=== PATIENT | male | born 1970 | race Caucasian/White ===

== ENCOUNTER 2018-01-05 05:13 | Emergency (ER) | payer SELFPAY ==
[~2018-01-05] VITALS: Ht 172.7 cm; Wt 81.6 kg
[2018-01-05] MEDS ORDERED: MORPHINE SULFATE 10 MG/ML VIAL. ONE (05:41)
[2018-01-05] MEDS ORDERED: ONDANSETRON PF 4 MG/2 ML VIAL. ONE (05:42)
[2018-01-05] MEDS ORDERED: MORPHINE SULFATE 4 MG/ML VIAL. IV ONE (06:00)
[2018-01-05] MEDS ORDERED: ONDANSETRON PF 4 MG/2 ML VIAL. IV ONE (06:00)
[2018-01-05] MEDS ORDERED: HYDR-971 PO (06:21)
--- NOTE | 2018-01-05 06:21 | PHYS DOC ---
Past Medical History Past Medical History: Hypertension Past Surgical History: No Surgical History Alcohol Use: None Drug Use: None Joint Reduction Joint Reduction : Joint Reduction Site: shoulder (R) Conscious Sedation: Yes Pre-Procedure NV Exam: Yes Post-Procedure NV Exam: Yes Post Joint Reduction Film: joint reduced Additional Procedures Progress Procedural Sedation: Pre-assessment performed. See preceding complete history and physical for details. Time out performed. See sedation documentation for details. Medication(s): Propofol Complications: No hypoxic or apneic events Recovered without incident. Greater than 15 minutes of face to face time included in sedation and recovery. Adult General Chief Complaint Chief Complaint: SHOULDER INJURY HPI HPI Patient is a 47 year old male who presents to the ER for evaluation of right shoulder dislocation. Patient reports history of recurrent shoulder dislocation for many years. States that approximately 5 years ago he is having repeated dislocations with minimal mechanism. States that 2 days ago he dislocated his right shoulder while sleeping but was able to get back in. Woke up this morning and as right shoulder is also dislocated is unable to reduce it. Denies any distal numbness or tingling. Pain is local shoulder, 7-8 out of 10, sharp. 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 Patient has not followed up with ortho. . Review of Systems Review of Systems Constitutional: Denies fever or chills [] Eyes: Denies change in visual acuity, redness, or eye pain [] HENT: Denies nasal congestion or sore throat [] Respiratory: Denies cough or shortness of breath [] Cardiovascular: No additional information not addressed in HPI [] GI: Denies abdominal pain, nausea, vomiting, bloody stools or diarrhea [] : Denies dysuria or hematuria [] Musculoskeletal: Denies back pain or joint pain [] Integument: Denies rash or skin lesions [] Neurologic: Denies headache, focal weakness or sensory changes [] Endocrine: Denies polyuria or polydipsia [] All other systems were reviewed and found to be within normal limits, except as documented in this note. Current Medications Current Medications Current Medications Medications (Trade) Dose Ordered Sig/Riky Start Time Stop Time Status Last Admin Dose Admin Diazepam (Valium) 10 mg 1X ONCE 01/05/18 06:30 01/05/18 06:31 DC 01/05/18 06:17 10 MG Lidocaine HCl (Lidocaine 1% 20ml Vial) 20 ml 1X ONCE 01/05/18 06:30 01/05/18 06:31 Cancel Lidocaine HCl (Xylocaine-Mpf 1% 5ml Vial) 10 ml 1X ONCE 01/05/18 07:00 01/05/18 07:01 DC 01/05/18 06:31 10 ML Morphine Sulfate (Morphine Sulfate) 10 mg STK-MED ONCE 01/05/18 05:41 01/05/18 05:42 DC Ondansetron HCl (Zofran) 4 mg STK-MED ONCE 01/05/18 05:42 01/05/18 05:43 DC Propofol (Diprivan) 200 mg 1X ONCE 01/05/18 08:15 01/05/18 08:16 DC 01/05/18 08:12 200 MG Sodium Chloride 1,000 ml @ 1,000 mls/hr 1X ONCE 01/05/18 08:15 01/05/18 09:14 01/05/18 08:08 1,000 MLS/HR Allergies Allergies Allergies Coded Allergies Type Severity Reaction Last Updated Verified No Known Drug Allergies 12/13/14 No Physical Exam Physical Exam Constitutional: Well developed, well nourished, no acute distress, non-toxic appearance. [] HENT: Normocephalic, atraumatic, Eyes: PERRLA, EOMI, conjunctiva normal, no discharge. [] Neck: Normal range of motion, no tenderness, supple, no stridor. [] Cardiovascular:Heart rate regular rhythm, no murmur [] Lungs & Thorax: Bilateral breath sounds clear to auscultation [] Skin: Warm, dry, no erythema, no rash. [] Back: No tenderness, no CVA tenderness. [] Extremities: Obvious deformity to right shoulder with squared off anatomy. Normal range of motion of right wrist and right hand. Radial pulse +2 out of 4. Distal sensation intact. Neurologic: Alert and oriented X 3,no focal deficits noted. [] Psychologic: Affect normal, judgement normal, mood normal. [] Current Patient Data Vital Signs Vital Signs Date Time Temp Pulse Resp B/P (MAP) Pulse Ox O2 Delivery O2 Flow Rate FiO2 01/05/18 08:05 72 14 144/99 (114) 97 Room Air 01/05/18 05:20 97.7 97.7 EKG EKG [] Radiology/Procedures Radiology/Procedures XR : R shoulder anterior dislocation XR R shoulder: S/p reduction. no acute fracture [] Course & Med Decision Making Course & Med Decision Making Pertinent Labs and Imaging studies reviewed. (See chart for details) []0802: Given history of recurrent dislocation and low mechanism resulting in dislocation attempted injection of lidocaine joint and oral Valium prior to reduction. Patient to anxious and unable to tolerate the procedure. A full conscious sedation was done. Patient was given propofol and had successful reduction of his right shoulder. Patient was placed in a shoulder immobilizer. Patient was advised to keep the shoulder immobilizer on until seen by Ortho. ER return precautions given. Patient verbalized understanding. All questions answered. Dragon Disclaimer Dragon Disclaimer This electronic medical record was generated, in whole or in part, using a voice recognition dictation system. Departure Departure Disposition: 01 HOME, SELF-CARE Condition: IMPROVED Referrals: NO PCP (PCP) THI MARTINES MD Patient Instructions: Shoulder Dislocation, [id number] Additional Instructions: Thank you for coming to [facility] Please repeat the attached handouts. Please follow-up with your primary care physician. Return to the ER if your symptoms worsen or you have any other concerns. Please take ibuprofen 800 mg 3 times a day with food for pain. Please take the prescribed medication for uncontrolled pain. Please keep the shoulder immobilizer on until your seen by an orthopedist. Scripts Hydrocodone/Apap 5-325 (NORCO 5-325 TABLET) 1 Each Tablet 1-2 EACH PO PRN Q6HRS PRN for PAIN MDD 6, #6 as needed for pain Prov: ARIEL PARSON DO 01/05/18 ARIEL PARSON DO Jan 05, 2018 06:21
--- NOTE | 2018-01-05 06:29 | RAD ---
Right shoulder 2 views: Reason for examination: Dislocation. Comparison is made to previous studies dated 02/23/2017 and 02/22/2007. The right humeral head appears to be dislocated anterior and inferior to the glenoid. An acute site of fracture is not seen. There is a small corticated ossific density at the distal end of the clavicle which could represent a chronic avulsion fracture. IMPRESSION: Anterior dislocation of the right humeral head from the glenoid. Electronically signed by: Nadira Dunbar MD (01/05/2018 6:25 AM) [facility]
[2018-01-05] MEDS ORDERED: LIDOCAINE 1% Multi-Dose 20 ML VIAL. INJ ONE (06:30)
[2018-01-05] MEDS ORDERED: diazePAM 5 MG TABLET PO ONE (06:30)
[2018-01-05] MEDS ORDERED: LIDOCAINE 1% PF 5 ML VIAL. INJ ONE (07:00)
[2018-01-05] MEDS ORDERED: PROPOFOL 20 ML IV ONE (07:09)
[2018-01-05 08:05] VITALS: BP 144/99
--- NOTE | 2018-01-05 08:14 | RAD ---
SHOULDER 2+V RIGHT Clinical Indication: POST REDUCTION, RIGHT SHOULDER Comparison: Right shoulder, 2 views, same day, 0544 hours Findings: Successful reduction of anterior subcoracoid glenohumeral dislocation. No acute fracture is identified. There is acromioclavicular arthropathy. Low lung volumes crowd pulmonary vasculature. IMPRESSION: Successful reduction of right shoulder dislocation. Electronically signed by: Sreekanth Luu MD (01/05/2018 8:11 AM) [facility]
[2018-01-05] MEDS ORDERED: IV NORMAL SALINE 1000ML BAG 1,000 ML IV ONE (08:15)
[2018-01-05] MEDS ORDERED: PROPOFOL 10 MG/ML (20ML) VIAL. IV ONE (08:15)
== END 2018-01-05 08:35 | disposition home or self-care (01) ==
LOC: ER 05:13
DX: S43.084A Other dislocation of right shoulder joint, initial encounter (principal); I10 Essential (primary) hypertension; X58.XXXA Exposure to other specified factors, initial encounter; Y93.89 Activity, other specified; Y92.89 Other specified places as the place of occurrence of the external cause; Y99.8 Other external cause status
CPT/HCPCS: 23650; 73030; 96374; 96375; 99285; J2405; J2704; J7030; 99152; J2270

== ENCOUNTER 2018-01-18 00:59 | Emergency (ER) | payer SELFPAY ==
[~2018-01-18] VITALS: Ht 172.7 cm; Wt 86.2 kg
[~2018-01-18 00:59] MED LIST: HYDR-971 PO
--- NOTE | 2018-01-18 01:22 | PHYS DOC ---
Past Medical History Past Medical History: Hypertension Past Surgical History: No Surgical History Alcohol Use: None Drug Use: None Adult General Chief Complaint Chief Complaint: SHOULDER INJURY HPI HPI Patient is a 47-year-old male who presents to the emergency department with recurrent right shoulder dislocation. He states he has had at least 25 shoulder dislocations in the past several years. He states he was sleeping, and was awakened by pain in his right shoulder, and is holding his arm slightly abducted , and externally rotated. He was seen in this emergency department for shoulder dislocation about 2 weeks ago. He denies any numbness or weakness distally or any other direct traumatic injury recently. He has not followed up with orthopedics. Attempted movement of the right shoulder seems to worsen the patient's pain. There are no other alleviating or exacerbating factors to his symptoms. Review of Systems Review of Systems Constitutional: Denies fever or chills [] Respiratory: Denies cough or shortness of breath [] : Denies dysuria or hematuria [] Musculoskeletal: Denies back pain or joint pain [] Integument: Denies rash or skin lesions [] Neurologic: Denies headache, focal weakness or sensory changes [] Current Medications Current Medications Current Medications Medications (Trade) Dose Ordered Sig/Riky Start Time Stop Time Status Last Admin Dose Admin Fentanyl Citrate (Fentanyl 2ml Vial) 100 mcg 1X ONCE 01/18/18 02:30 01/18/18 02:31 DC 01/18/18 01:38 100 MCG Propofol (Diprivan) 200 mg 1X ONCE 01/18/18 02:30 01/18/18 03:06 DC 01/18/18 02:30 200 MG Allergies Allergies Allergies Coded Allergies Type Severity Reaction Last Updated Verified No Known Drug Allergies 12/13/14 No Physical Exam Physical Exam PHYSICAL EXAM: CONSTITUTIONAL: Well developed, well nourished HEAD: normocephalic, atraumatic EENT: PERRL, EOMI. Conjunctivae normal color, sclerae non-icteric; moist mucous membranes. NECK: Supple, non-tender; no meningismus. LUNGS: Lungs CTA, breathing even and unlabored. Normal air movement. HEART: Regular rate and rhythm, no murmur CHEST: No deformity; non-tender ABDOMEN: The abdomen is soft, and non-tender, no masses or bruits. EXTREM: The right shoulder is held in approximately 75 of abduction, and external rotation, there is some flatness felt to the anterior glenoid area, although due to the patient's positioning this is uncertain. There is normal range of motion in the hand and wrist. Distal sensation and radial pulse are normal. Deltoid sensation is intact but diminished. Extremities are unremarkable , with Normal ROM; no deformity, no calf tenderness. Normal pulses palpable in all extremities. There is no pedal edema. SKIN: No rash; no diaphoresis NEURO: Alert; normal speech and cognition; CN's grossly intact; strength grossly intact without focal deficit. BACK: No CVA TTP. Current Patient Data Vital Signs Vital Signs Date Time Temp Pulse Resp B/P (MAP) Pulse Ox O2 Delivery O2 Flow Rate FiO2 01/18/18 02:33 62 14 160/91 67 01/18/18 01:38 98 Room Air 01/18/18 00:59 98.2 98.2 EKG EKG [] Radiology/Procedures Radiology/Procedures [ER physician preliminary shoulder x-ray interpretation: Acute anterior/ inferior dislocation Repeat postreduction x-ray shows satisfactory reduction. There are no acute fractures noted.] Course & Med Decision Making Course & Med Decision Making Pertinent Labs and Imaging studies reviewed. (See chart for details) [3:30 AM: The patient's condition remained stable. He is ambulatory, and at his baseline. He is feeling much better. He is in a shoulder immobilizer. PMS intact and deltoid sensation intact postreduction. Discussed importance of close follow-up with ] orthopedics, and return precautions. SHOULDER DISLOCATION REDUCTION PROCEDURE NOTE: The patient was placed on a environmental monitoring technician, and CO2 monitor and oxygen monitoring was used. Informed consent was obtained. The patient was given a total of 100 mg of propofol, and divided doses, until moderate sedation was obtained. The right anterior shoulder dislocation was easily reduced, with adduction, slight external rotation and mild traction. The patient tolerated procedure well. EMS intact post procedure. Patient recovered from sedation uneventfully. Dragon Disclaimer Dragon Disclaimer This electronic medical record was generated, in whole or in part, using a voice recognition dictation system. Departure Departure Impression: Primary Impression: Anterior shoulder dislocation Disposition: HOME, SELF-CARE Condition: STABLE Referrals: NO PCP (PCP) Patient Instructions: Shoulder Dislocation POLA WEIR MD Jan 18, 2018 01:22
[2018-01-18] MEDS ORDERED: fentaNYL PF VIAL 100 MCG/2 ML VIAL IV ONE (02:30)
[2018-01-18] MEDS ORDERED: PROPOFOL 10 MG/ML (20ML) VIAL. IV ONE (02:30)
[2018-01-18] MEDS ORDERED: PROPOFOL 20 ML IV ONE (02:32)
[2018-01-18 03:52] VITALS: BP 163/97
--- NOTE | 2018-01-18 09:31 | RAD ---
Right shoulder, 2 views, 01/18/2018, 1:40 AM: HISTORY: Trauma, shoulder injury There is anterior dislocation of the humeral head relative to the glenoid fossa of the scapula. No acute fracture is seen. There is mild degenerative change at the AC joint with a small chronic appearing periarticular ossification at that level. IMPRESSION: Anterior right shoulder dislocation. Electronically signed by: Darius Queen MD (01/18/2018 9:28 AM) [facility]
--- NOTE | 2018-01-18 09:33 | RAD ---
Portable right shoulder, 2 views, 01/18/2018, 3:04 AM: HISTORY: Postreduction evaluation Comparison is made to the study of earlier the same day. The right shoulder dislocation has been reduced. No acute fracture is seen. Degenerative changes are again noted at the AC joint. IMPRESSION: Satisfactory reduction of the right shoulder dislocation. Electronically signed by: Darius Queen MD (01/18/2018 9:30 AM) [facility]
== END 2018-01-18 04:05 | disposition home or self-care (01) ==
LOC: ER 00:59
DX: S43.084A Other dislocation of right shoulder joint, initial encounter (principal); I10 Essential (primary) hypertension; X58.XXXA Exposure to other specified factors, initial encounter; Y93.89 Activity, other specified; Y92.89 Other specified places as the place of occurrence of the external cause; Y99.8 Other external cause status
CPT/HCPCS: 23650; 73030; 96374; 99285; J2704; J3010

== ENCOUNTER 2018-01-22 10:48 | Emergency (ER) | payer SELFPAY ==
[~2018-01-22] VITALS: Ht 172.7 cm; Wt 83.9 kg
[2018-01-22] MEDS ORDERED: MORPHINE SULFATE 10 MG/ML VIAL. IV ONE (11:15)
--- NOTE | 2018-01-22 11:16 | PHYS DOC ---
Past Medical History Past Medical History: Hypertension Past Surgical History: No Surgical History Alcohol Use: None Drug Use: None Adult General HPI HPI Patient is a 47 year old male with history of hypertension who presents today with right shoulder dislocation. Patient states he woke up this morning and his shoulder was dislocated. He states he has had over 25 shoulder dislocations. He states he never follows up with the orthopedic doctor. He is complaining of 10 out of 10 right shoulder pain. He states his pain is worse on movement. He is favoring the right upper extremity. Review of Systems Review of Systems Constitutional: Denies fever or chills [] Musculoskeletal: Reports right shoulder dislocation Integument: Denies rash or skin lesions [] Neurologic: Denies headache, focal weakness or sensory changes [] All other systems were reviewed and found to be within normal limits, except as documented in this note. Current Medications Current Medications Current Medications Medications (Trade) Dose Ordered Sig/Riky Start Time Stop Time Status Last Admin Dose Admin Fentanyl Citrate (Fentanyl 2ml Vial) 50 mcg 1X ONCE 01/22/18 12:00 01/22/18 12:01 DC 01/22/18 12:13 50 MCG Midazolam HCl (Versed) 5 mg STK-MED ONCE 01/22/18 12:30 01/22/18 12:31 DC Morphine Sulfate (Morphine Sulfate) 5 mg 1X ONCE 01/22/18 11:15 01/22/18 11:16 DC Propofol (Diprivan) 200 mg 1X ONCE 01/22/18 12:00 01/22/18 12:01 DC 01/22/18 12:15 200 MG Allergies Allergies Allergies Coded Allergies Type Severity Reaction Last Updated Verified No Known Drug Allergies 12/13/14 No Physical Exam Physical Exam Constitutional: Well developed, well nourished, no acute distress, non-toxic appearance. [] Skin: Warm, dry, no erythema, no rash. [] Back: No tenderness, no CVA tenderness. [] Extremities: Right shoulder appears obviously deformed/internally rotated. Very limited range of motion to the right shoulder due to pain. Full range of motion to the right hand and fingers. Adequate radial, medial, ulnar sensation to the right upper extremity. +2 right radial pulse. Cap refill less than 2 seconds the right fingers. Neurologic: Alert and oriented X 3, normal motor function, normal sensory function, no focal deficits noted. [] Psychologic: Affect normal, judgement normal, mood normal. [] Current Patient Data Vital Signs Vital Signs Date Time Temp Pulse Resp B/P (MAP) Pulse Ox O2 Delivery O2 Flow Rate FiO2 01/22/18 12:56 69 16 142/86 6.0 01/22/18 12:19 96 Nasal Cannula 01/22/18 10:48 97.4 97.4 EKG EKG [] Radiology/Procedures Radiology/Procedures []PROCEDURE: SHOULDER 2+V RIGHT SHOULDER 2+V RIGHT History: Dislocation of shoulder while sleeping Comparison: 01/18/2018 Findings: 2 views right shoulder are submitted. There is right anterior shoulder dislocation. Small ossific body near the distal right clavicle is unchanged. No acute fracture is identified by radiographs. Impression: 1. There is right anterior shoulder dislocation. Electronically signed by: Lexis Cantu MD (01/22/2018 12:04 PM) [id number] DICTATED and SIGNED BY: LEXIS CANTU MD DATE: 01/22/18 1202 Course & Med Decision Making Course & Med Decision Making Pertinent Labs and Imaging studies reviewed. (See chart for details) This is a 47-year-old male patient presented to the ED today with right shoulder his location, noted this morning when patient woke up. Right shoulder x-rays interpreted by radiologist were noted for right anterior shoulder dislocation. Dr. Ng tried to reduce the shoulder with no success. Dr. Dominguez was consulted who stated he will take patient to OR. Consulted with Dr. Sands for admission Dr. Dominguez came to the Ed and evaluated patient. He states patient will go to surgery then home. Dragon Disclaimer Dragon Disclaimer This electronic medical record was generated, in whole or in part, using a voice recognition dictation system. Departure Departure Impression: Primary Impression: Shoulder dislocation Disposition: 09 ADMITTED INPATIENT Condition: STABLE Referrals: NO PCP (PCP) Problem Qualifiers Primary Impression: Shoulder dislocation Encounter type: sequela Laterality: right Qualified Codes: S43.004S - Unspecified dislocation of right shoulder joint, sequela [employer] Jan 22, 2018 11:16
[2018-01-22] MEDS ORDERED: PROPOFOL 10 MG/ML (20ML) VIAL. IV ONE (12:00)
[2018-01-22] MEDS ORDERED: fentaNYL PF VIAL 100 MCG/2 ML VIAL IV ONE ×3 (12:00→14:00)
--- NOTE | 2018-01-22 12:07 | RAD ---
SHOULDER 2+V RIGHT History: Dislocation of shoulder while sleeping Comparison: 01/18/2018 Findings: 2 views right shoulder are submitted. There is right anterior shoulder dislocation. Small ossific body near the distal right clavicle is unchanged. No acute fracture is identified by radiographs. Impression: 1. There is right anterior shoulder dislocation. Electronically signed by: Alvaro Bee MD (01/22/2018 12:04 PM) [id number]
[2018-01-22] MEDS ORDERED: MIDAZOLAM HCL/PF 5 MG/5 ML VIAL. ONE (12:30)
--- NOTE | 2018-01-22 13:17 | PDOC1 ---
History and Physical Date of Admission Date of Admission DATE: 01/22/18 TIME: 13:17 Identification/Chief Complaint Chief Complaint Past Medical History: Hypertension Past Surgical History: No Surgical History Alcohol Use: None Drug Use: None ED GENERAL TEMPLATE Adult General HPI HPI Patient is a 47 year old male with history of hypertension who presents today with right shoulder dislocation. woke up this morning and his shoulder was dislocated. He states he has had over 20 shoulder dislocations. He states he never follows up with the orthopedic doctor. complaining of 10 out of 10 right shoulder pain. He states his pain is worse on movement. He is favoring the right upper extremity. Review of Systems Review of Systems Constitutional: Denies fever or chills [] Musculoskeletal: Reports right shoulder dislocation Integument: Denies rash or skin lesions [] Neurologic: Denies headache, focal weakness or sensory changes [] 14 pt ros otherwise neg Past Medical History Psych: No pertinent hx Past Surgical History Past Surgical History: Other Family History Family History: High Cholestrol Social History Smoke: <1 pack per day ALCOHOL: rare Drugs: None Current Medications Current Medications Current Medications Morphine Sulfate (Morphine Sulfate) 5 mg 1X ONCE IV ; Start 01/22/18 at 11:15 ; Stop 01/22/18 at 11:16; Status DC Propofol (Diprivan) 200 mg 1X ONCE IV Last administered on 01/22/18at 12:15; Start 01/22/18 at 12:00; Stop 01/22/18 at 12:01; Status DC Fentanyl Citrate (Fentanyl 2ml Vial) 50 mcg 1X ONCE IV Last administered on at 12:13; Start 01/22/18 at 12:00; Stop 01/22/18 at 12:01; Status DC Midazolam HCl (Versed) 5 mg STK-MED ONCE .ROUTE ; Start 01/22/18 at 12:30; Stop 01/22/18 at 12:31; Status DC Active Scripts Active [place] 5-325 Tablet (Acetaminophen/Hydrocodone Bitart) 1 Each Tablet 1-2 Each PO PRN Q6HRS PRN MDD 6 as needed for pain Allergies Allergies: Coded Allergies: No Known Drug Allergies (Unverified , 12/13/14) Physical Exam Physical Exam Physical Exam Physical Exam Constitutional: Well developed, well nourished, mod acute distress, non-toxic appearance. [] Skin: Warm, dry, no erythema, no rash. [] Back: No tenderness, no CVA tenderness. [] Extremities: Right shoulder appears obviously deformed/internally rotated. Very limited range of motion to the right shoulder due to pain. Full range of motion to the right hand and fingers. Adequate radial, medial, ulnar sensation to the right upper extremity. +2 right radial pulse. Cap refill less than 2 seconds the right fingers. Neurologic: Alert and oriented X 3, normal motor function, normal sensory function, no focal deficits noted. [] Psychologic: Affect normal, judgement normal, mood normal. [] General: Oriented X3, Cooperative, moderate distress HEENT: Atraumatic, PERRLA, EOMI Lungs: Clear to auscultation Breasts: Not examined Abdomen: Soft Rectal Exam: not examined Extremities: No cyanosis Neuro: Normal speech, Cranial nerves 3-12 NL Psych/Mental Status: Mental status NL Vitals Vitals Vital Signs Date Time Temp Pulse Resp B/P (MAP) Pulse Ox O2 Delivery O2 Flow Rate FiO2 01/22/18 12:56 69 16 142/86 6.0 01/22/18 12:19 96 Nasal Cannula 01/22/18 10:48 97.4 97.4 VTE Prophylaxis Ordered VTE Prophylaxis Devices: Yes VTE Pharmacological Prophylaxi: Yes Assessment/Plan Assessment/Plan Impression: Shoulder dislocation ADMITTED INPATIENT ortho to or today Condition: STABLE home MAYTE Durbin MD Jan 22, 2018 13:17
[2018-01-22] MEDS ORDERED: fentaNYL PF VIAL 100 MCG/2 ML VIAL ONE ×2 (13:40→13:44)
[2018-01-22] MEDS ORDERED: KETOROLAC 30 MG/ML VIAL. ONE (13:43)
[2018-01-22] MEDS ORDERED: LIDOCAINE 2% PF Vial for OR 5 ML VIAL. ONE (13:44)
[2018-01-22] MEDS ORDERED: PROPOFOL 20 ML IV ONE (13:44)
[2018-01-22] MEDS ORDERED: IV RINGERS,LACTATED 1000ML 1,000 ML IV SCH ×2 (13:49→13:50)
[2018-01-22] MEDS ORDERED: HYDROmorphone 2 MG/ML VIAL IV PRN ×2 (14:00)
[2018-01-22] MEDS ORDERED: MIDAZOLAM HCL/PF 2 MG/2 ML VIAL. IV ONE (14:00)
[2018-01-22] MEDS ORDERED: ONDANSETRON PF 4 MG/2 ML VIAL. IV PRN ×2 (14:00)
[2018-01-22] MEDS ORDERED: KETOROLAC 30 MG/ML VIAL. IV ONE (14:00)
[2018-01-22] MEDS ORDERED: MORPHINE SULFATE 2 MG/ML VIAL. IV PRN ×2 (14:00)
[2018-01-22] MEDS ORDERED: fentaNYL PF VIAL 100 MCG/2 ML VIAL IV PRN ×4 (14:00)
[2018-01-22] MEDS ORDERED: PROCHLORPERAZINE 10 MG/2 ML VIAL. IV PRN ×2 (14:00)
[2018-01-22] MEDS ORDERED: LIDOCAINE 1% PF 2 ML VIAL. ID PRN ×2 (14:00)
[2018-01-22] MEDS ORDERED: SEVOFLURANE 16 TO 30 MINUTES. IH ONE (14:23)
[2018-01-22] MEDS ORDERED: ONDANSETRON PF 4 MG/2 ML VIAL. ONE (14:23)
[2018-01-22] MEDS ORDERED: DEXAMETHASONE SOD PHOS 20 MG/5 ML VIAL. ONE (14:23)
--- NOTE | 2018-01-22 14:40 | DISCH ---
DISCHARGE INSTRUCTIONS Condition on Discharge Condition on Discharge: Stable Activity After Discharge Activity Instructions for Disc: Other, see below Other activity instructions: arm must remain in sling at all times Bathing Instructions: Shower-keep dressing dry Weight Bearing Status after Di: Non weight bearing Diet after Discharge Diet after Discharge: Regular Wound Incision Care Wound/Incision Care: Ice to area for comfort Contacting the DRSerafin after DC Call your doctor for: Concerns you may have Follow-Up Follow up with: Alberto in 2 wks ANA RAGLAND II, MD Jan 22, 2018 14:40
--- NOTE | 2018-01-22 14:50 | PDOC4 ---
Operative Note Operative Note Date of procedure: 01/22/2018 Surgeon: Santi Ragland Preoperative diagnosis: Right shoulder anterior glenohumeral dislocation Postoperative diagnosis: Same Procedure performed: Closed reduction of right shoulder dislocation Anesthesia: Gen. Findings: Reducible glenohumeral dislocation, [id number] 1+ anteriorly, normal posteriorly after reduction. Blood loss: 0 Competitions: None Reason for procedure: Patient is a is a pleasant 47-year-old gentleman who has recurrent shoulder dislocations going back over a decade. He has dislocated 3 times this month. His brother tells me that he has not been wearing the sling and at his arm over his head this most recent time. He presented to [facility] department, unsuccessful attempt at reduction led to consultation with myself for definitive management. Discussion of the risks, benefits, alternatives, postop course was had with the patient. He elected to proceed with the above surgery. Description of procedure: Patient was greeted in preoperative holding area where the correct extremity was verified and marked. He was taken back to the operative suite and once in the OR he was transferred gently supine to the operating table and underwent successful induction of a general anesthetic. C but was in place. Traction countertraction method was used with slight external rotation to disengage the humeral head which allowed for a smooth reduction after one attempt. Examination under anesthesia was conducted. Abduction pillow sling was then placed and the patient was awake from anesthesia and transferred gently supine to the recovery room cart. He is taking the PACU stable and expected condition. Postoperative plan is sling and nonweightbearing 6 weeks. I will see him back in my clinic in 2 weeks, sooner should a problem arise. From my standpoint, he can be discharged home today depending on pain control. SANTI RAGLAND II, MD Jan 22, 2018 14:50
--- NOTE | 2018-01-22 14:54 | PDOC2 ---
CONSULT Date of Consult Date of Consult DATE: 01/22/18 TIME: 14:50 Reason for Consult Reason for Consult: Right shoulder dislocation Referring Physician Referring Physician: Hernandez Identification/Chief Complaint Chief Complaint Right shoulder pain Source Source: Chart review, Patient History of Present Illness Reason for Visit: Patient is a 47-year-old gentleman who had his arm out of the sling and over his head, per report from his brother who accompanies him today, and dislocated his right shoulder again. He has had 3 different dislocations this month. He has a multiple prior dislocations as well. The shoulder hurts all over, worse with any attempted movement. He tells me his whole arm feels a little weird. His shoulder pain is worse on the right over as well. Past Medical History Psych: No pertinent hx Past Surgical History Past Surgical History: Other Family History Family History: High Cholestrol Social History <1 pack per day ALCOHOL: rare Drugs: None Current Problem List Problem List Problems Medical Problems: (1) Shoulder dislocation Status: Acute Current Medications Current Medications Current Medications Morphine Sulfate (Morphine Sulfate) 5 mg 1X ONCE IV ; Start 01/22/18 at 11:15 ; Stop 01/22/18 at 11:16; Status DC Propofol (Diprivan) 200 mg 1X ONCE IV Last administered on 01/22/18at 12:15; Start 01/22/18 at 12:00; Stop 01/22/18 at 12:01; Status DC Fentanyl Citrate (Fentanyl 2ml Vial) 50 mcg 1X ONCE IV Last administered on at 12:13; Start 01/22/18 at 12:00; Stop 01/22/18 at 12:01; Status DC Midazolam HCl (Versed) 5 mg STK-MED ONCE .ROUTE ; Start 01/22/18 at 12:30; Stop 01/22/18 at 12:31; Status DC Fentanyl Citrate (Fentanyl 2ml Vial) 100 mcg STK-MED ONCE .ROUTE ; Start at 13:40; Stop 01/22/18 at 13:41; Status DC Ketorolac Tromethamine (Toradol 30mg Vial) 30 mg STK-MED ONCE .ROUTE ; Start at 13:43; Stop 01/22/18 at 13:44; Status DC Propofol 20 ml @ As Directed STK-MED ONCE IV ; Start 01/22/18 at 13:44; Stop 01/22/18 at 13:45; Status DC Lidocaine HCl (Lidocaine Pf 2% Vial) 5 ml STK-MED ONCE .ROUTE ; Start 01/22/18 at 13:44; Stop 01/22/18 at 13:45; Status DC Fentanyl Citrate (Fentanyl 2ml Vial) 100 mcg STK-MED ONCE .ROUTE ; Start at 13:44; Stop 01/22/18 at 13:45; Status DC Ondansetron HCl (Zofran) 4 mg PRN Q6HRS PRN IV NAUSEA/VOMITING; Start at 14:00; Stop 01/23/18 at 13:59 Fentanyl Citrate (Fentanyl 2ml Vial) 25 mcg PRN Q5MIN PRN IV MILD PAIN; Start 01/22/18 at 14:00; Stop 01/23/18 at 13:59 Fentanyl Citrate (Fentanyl 2ml Vial) 50 mcg PRN Q5MIN PRN IV MODERATE TO SEVERE PAIN; Start 01/22/18 at 14:00; Stop 01/23/18 at 13:59 Morphine Sulfate (Morphine Sulfate) 1 mg PRN Q10MIN PRN IV SEVERE PAIN; Start 01/22/18 at 14:00; Stop 01/23/18 at 13:59 Ringer's Solution 1,000 ml @ 30 mls/hr Q24H IV Last administered on at 13:59; Start 01/22/18 at 13:49; Stop 01/23/18 at 01:48 Lidocaine HCl (Xylocaine-Mpf 1% 2ml Vial) 2 ml PRN 1X PRN ID PRIOR TO IV START ; Start 01/22/18 at 14:00; Stop 01/23/18 at 13:59 Hydromorphone HCl (Dilaudid) 0.5 mg PRN Q10MIN PRN IV SEV PAIN, Second choice; Start 01/22/18 at 14:00; Stop 01/23/18 at 13:59 Prochlorperazine Edisylate (Compazine) 5 mg PACU PRN PRN IV NAUSEA, MRX1; Start 01/22/18 at 14:00; Stop 01/23/18 at 13:59 Ondansetron HCl (Zofran) 4 mg PRN Q6HRS PRN IV NAUSEA/VOMITING; Start at 14:00; Stop 01/23/18 at 13:59; Status UNV Fentanyl Citrate (Fentanyl 2ml Vial) 25 mcg PRN Q5MIN PRN IV MILD PAIN; Start 01/22/18 at 14:00; Stop 01/23/18 at 13:59; Status UNV Fentanyl Citrate (Fentanyl 2ml Vial) 50 mcg PRN Q5MIN PRN IV MODERATE TO SEVERE PAIN; Start 01/22/18 at 14:00; Stop 01/23/18 at 13:59; Status UNV Morphine Sulfate (Morphine Sulfate) 1 mg PRN Q10MIN PRN IV SEVERE PAIN; Start 01/22/18 at 14:00; Stop 01/23/18 at 13:59; Status UNV Ringer's Solution 1,000 ml @ 30 mls/hr Q24H IV ; Start 01/22/18 at 13:50; Stop 01/23/18 at 01:49; Status UNV Lidocaine HCl (Xylocaine-Mpf 1% 2ml Vial) 2 ml PRN 1X PRN ID PRIOR TO IV START ; Start 01/22/18 at 14:00; Stop 01/23/18 at 13:59; Status UNV Hydromorphone HCl (Dilaudid) 0.5 mg PRN Q10MIN PRN IV SEV PAIN, Second choice; Start 01/22/18 at 14:00; Stop 01/23/18 at 13:59; Status UNV Prochlorperazine Edisylate (Compazine) 5 mg PACU PRN PRN IV NAUSEA, MRX1; Start 01/22/18 at 14:00; Stop 01/23/18 at 13:59; Status UNV Fentanyl Citrate (Fentanyl 2ml Vial) 100 mcg 1X ONCE IV Last administered on 01/22/18at 13:59; Start 01/22/18 at 14:00; Stop 01/22/18 at 14:01; Status DC Ketorolac Tromethamine (Toradol 30mg Vial) 30 mg 1X ONCE IV Last administered on 01/22/18at 13:58; Start 01/22/18 at 14:00; Stop 01/22/18 at 14:01; Status DC Fentanyl Citrate (Fentanyl 2ml Vial) 50 mcg 1X ONCE IV ; Start 01/22/18 at 14: 00; Stop 01/22/18 at 14:01; Status DC Midazolam HCl (Versed) 3 mg 1X ONCE IV ; Start 01/22/18 at 14:00; Stop at 14:01; Status DC Dexamethasone Sodium Phosphate (Decadron) 20 mg STK-MED ONCE .ROUTE ; Start at 14:23; Stop 01/22/18 at 14:24; Status DC Ondansetron HCl (Zofran) 4 mg STK-MED ONCE .ROUTE ; Start 01/22/18 at 14:23; Stop 01/22/18 at 14:24; Status DC Sevoflurane (Ultane) 15 ml STK-MED ONCE IH ; Start 01/22/18 at 14:23; Stop at 14:24; Status DC Active Scripts Active No Active Prescriptions or Reported Medications Allergies Allergies: Coded Allergies: No Known Drug Allergies (Unverified , 12/13/14) ROS General: No: Chills, Night Sweats, Fatigue, Malaise, Appetite, Other PSYCHOLOGICAL ROS: No: Anxiety, Behavioral Disorder, Concentration difficultie , Decreased libido, Depression, Disorientation, Hallucinations, Hostility, Irritablity, Memory difficulties, Mood Swings, Obsessive thoughts, Physical abuse, Sexual abuse, Sleep disturbances, Suicidal ideation, Other Eyes: No Blurry vision, No Decreased vision, No Double vision, No Dry eyes, No Excessive tearing, No Eye Pain, No Itchy Eyes, No Loss of vision, No Photophobia , No Scotomata, No Uses contacts, No Uses glasses, No Other HEENT: No: Heacaches, Visual Changes, Hearing change, Nasal congestion, Nasal discharge, Oral lesions, Sinus pain, Sore Throat, Epistaxis, Sneezing, Snoring, Tinnitus, Vertigo, Vocal changes, Other ALLERGY AND IMMUNOLOGY: No: Hives, Insect Bite Sensitivity, Itchy/Watery Eyes, Nasal Congestion, Post Nasal Drip, Seasonal Allergies, Other Hematological and Lymphatic: No: Bleeding Problems, Blood Clots, Blood Transfusions, Brusing, Night Sweats, Pallor, Swollen Lymph Nodes, Other Respiratory: No: Cough, Hemoptysis, Orthopnea, Pleuritic Pain, Shortness of breath, SOB with excertion, Sputum Changes, Stridor, Tachypnea, Wheezing, Other Cardiovascular: No Chest Pain, No Palpitations, No Orthopnea, No Paroxysmal Noc. Dyspnea, No Edema, No Lt Headedness, No Other Gastrointestinal: No Nausea, No Vomiting, No Abdominal Pain, No Diarrhea, No Constipation, No Melena, No Hematochezia, No Other Genitourinary: No Dysuria, No Frequency, No Incontinence, No Hematuria, No Retention, No Discharge, No Urgency, No Pain, No Flank Pain, No Other, No , No , No , No , No , No , No Musculoskeletal: Yes Joint Pain, Yes Joint Stiffness, Yes Joint Swelling Neurological: No Behavorial Changes, No Bowel/Bladder ControlChng, No Confusion , No Dizziness, No Gait Disturbance, No Headaches, No Impaired Coord/balance, No Memory Loss, No Numbness/Tingling, No Seizures, No Speech Problems, No Tremors, No Visual Changes, No Weakness, No Other Skin: No Dry Skin, No Eczema, No Hair Changes, No Lumps, No Mole Changes, No Mottling, No Nail Changes, No Pruritus, No Rash, No Skin Lesion Changes, No Other, No Acne Physical Exam General: Alert, Oriented X3 HEENT: Atraumatic, EOMI Lungs: Other (respirations aren't labored with symmetric chest rise) Heart: Regular rate, Other (radial pulses 2+) Abdomen: Soft, No tenderness Extremities: No edema, Normal pulses Skin: No breakdown Neuro: Normal speech, Other (difficult to assess axillary motor and sensation secondary to patient's pain and guarding.) Psych/Mental Status: Mental status NL, Mood NL MUSCULOSKELETAL: Other (obvious gross deformity with palpable firmness anterior glenohumeral joint. Arm is held tightly at his side. Motor and sensation are intact median, radial, ulnar nerves. Unable to assess axillary second opinion guarding.) Vitals VITALS Vital Signs Date Time Temp Pulse Resp B/P (MAP) Pulse Ox O2 Delivery O2 Flow Rate FiO2 01/22/18 14:02 97.4 59 15 185/84 99 Nasal Cannula 2.0 97.4 Images Images X-rays were interpreted by myself. Anterior right glenohumeral dislocation without obvious fracture Assessment/Plan Assessment/Plan He underwent an unsuccessful attempt a closed reduction in the emergency department. Therefore I discussed proceeding the operating room for deeper anesthesia. I did discuss the risks, benefits, and alternatives with the patient and he wished to proceed. He'll be in an abduction sling and nonweightbearing for 6 weeks after this. We will see how his pain control goes, he may need admitting for pain medicines, but he could be discharged if his pain is tolerable. ANA RAGLAND II, MD Jan 22, 2018 14:54
[2018-01-22] MEDS ORDERED: OXYC-328 PO (15:00)
[2018-01-22] MEDS ORDERED: oxyCODONE/APAP 10/325 1 TAB TABLET PO ONE (15:15)
[2018-01-22 16:34] VITALS: BP 138/78
--- NOTE | 2018-01-22 22:41 | PDOC3 ---
Discharge Summary Date of Admission: Jan 22, 2018 Date of Discharge: Jan 22, 2018 Follow-Up: 3-5 days Admitting Diagnosis comment: discharge dx recurrent right anterior shoulder dislocation. Patient is a 47 year old male with history of hypertension who presents today with right shoulder dislocation. Patient states he woke up this morning and his shoulder was dislocated. He states he has had over 20 shoulder dislocations. He states he never follows up with the orthopedic doctor. He is complaining of 10 out of 10 right shoulder pain. He states his pain is worse on movement. He is favoring the right upper extremity. Review of Systems Review of Systems Constitutional: Denies fever or chills [] Musculoskeletal: Reports right shoulder dislocation Integument: Denies rash or skin lesions [] Neurologic: Denies headache, focal weakness or sensory changes [] All other systems were reviewed and found to be within normal limits, except as documented in this note. Current Medications Current Medications Current Medications Medications (Trade) Dose Ordered Sig/Riky Start Time Stop Time Status Last Admin Dose Admin Fentanyl Citrate (Fentanyl 2ml Vial) 50 mcg 1X ONCE 01/22/18 12:00 01/22/18 12:01 DC 01/22/18 12:13 50 MCG Midazolam HCl (Versed) 5 mg STK-MED ONCE 01/22/18 12:30 01/22/18 12:31 DC Morphine Sulfate (Morphine Sulfate) 5 mg 1X ONCE 01/22/18 11:15 01/22/18 11:16 DC Propofol (Diprivan) 200 mg 1X ONCE 01/22/18 12:00 01/22/18 12:01 DC 01/22/18 12:15 200 MG Allergies Allergies Allergies Coded Allergies Type Severity Reaction Last Updated Verified No Known Drug Allergies 12/13/14 No Physical Exam Physical Exam Constitutional: Well developed, well nourished, no acute distress, non-toxic appearance. [] Skin: Warm, dry, no erythema, no rash. [] Back: No tenderness, no CVA tenderness. [] Extremities: Right shoulder appears obviously deformed/internally rotated. Very limited range of motion to the right shoulder due to pain. Full range of motion to the right hand and fingers. Adequate radial, medial, ulnar sensation to the right upper extremity. +2 right radial pulse. Cap refill less than 2 seconds the right fingers. Neurologic: Alert and oriented X 3, normal motor function, normal sensory function, no focal deficits noted. [] Psychologic: Affect normal, judgement normal, mood normal. [] Current Patient Data Vital Signs Vital Signs Date Time Temp Pulse Resp B/P (MAP) Pulse Ox O2 Delivery O2 Flow Rate FiO2 01/22/18 12:56 69 16 142/86 6.0 01/22/18 12:19 96 Nasal Cannula 01/22/18 10:48 97.4 97.4 EKG EKG [] Radiology/Procedures Radiology/Procedures []PROCEDURE: SHOULDER 2+V RIGHT SHOULDER 2+V RIGHT History: Dislocation of shoulder while sleeping Comparison: 01/18/2018 Findings: 2 views right shoulder are submitted. There is right anterior shoulder dislocation. Small ossific body near the distal right clavicle is unchanged. No acute fracture is identified by radiographs. Impression: 1. There is right anterior shoulder dislocation. Electronically signed by: Alvaro Bee MD (01/22/2018 12:04 PM) [id number] FINAL DIAGNOSIS Problems Medical Problems: (1) Shoulder dislocation Status: Acute Brief Hospital Course Mr. Fiore is a 47 old [sex] who presented with [ shoulder dislocation right] CONDITION AT DISCHARGE: Improved Discharge Medications Current Medications Morphine Sulfate (Morphine Sulfate) 5 mg 1X ONCE IV ; Start 01/22/18 at 11:15 ; Stop 01/22/18 at 11:16; Status DC Propofol (Diprivan) 200 mg 1X ONCE IV Last administered on 01/22/18at 12:15; Start 01/22/18 at 12:00; Stop 01/22/18 at 12:01; Status DC Fentanyl Citrate (Fentanyl 2ml Vial) 50 mcg 1X ONCE IV Last administered on at 12:13; Start 01/22/18 at 12:00; Stop 01/22/18 at 12:01; Status DC Midazolam HCl (Versed) 5 mg STK-MED ONCE .ROUTE ; Start 01/22/18 at 12:30; Stop 01/22/18 at 12:31; Status DC Fentanyl Citrate (Fentanyl 2ml Vial) 100 mcg STK-MED ONCE .ROUTE ; Start at 13:40; Stop 01/22/18 at 13:41; Status DC Ketorolac Tromethamine (Toradol 30mg Vial) 30 mg STK-MED ONCE .ROUTE ; Start at 13:43; Stop 01/22/18 at 13:44; Status DC Propofol 20 ml @ As Directed STK-MED ONCE IV ; Start 01/22/18 at 13:44; Stop 01/22/18 at 13:45; Status DC Lidocaine HCl (Lidocaine Pf 2% Vial) 5 ml STK-MED ONCE .ROUTE ; Start 01/22/18 at 13:44; Stop 01/22/18 at 13:45; Status DC Fentanyl Citrate (Fentanyl 2ml Vial) 100 mcg STK-MED ONCE .ROUTE ; Start at 13:44; Stop 01/22/18 at 13:45; Status DC Ondansetron HCl (Zofran) 4 mg PRN Q6HRS PRN IV NAUSEA/VOMITING; Start at 14:00; Stop 01/22/18 at 15:56; Status DC Fentanyl Citrate (Fentanyl 2ml Vial) 25 mcg PRN Q5MIN PRN IV MILD PAIN; Start 01/22/18 at 14:00; Stop 01/22/18 at 15:56; Status DC Fentanyl Citrate (Fentanyl 2ml Vial) 50 mcg PRN Q5MIN PRN IV MODERATE TO SEVERE PAIN; Start 01/22/18 at 14:00; Stop 01/22/18 at 15:56; Status DC Morphine Sulfate (Morphine Sulfate) 1 mg PRN Q10MIN PRN IV SEVERE PAIN; Start 01/22/18 at 14:00; Stop 01/22/18 at 15:56; Status DC Ringer's Solution 1,000 ml @ 30 mls/hr Q24H IV Last administered on at 13:59; Start 01/22/18 at 13:49; Stop 01/22/18 at 15:56; Status DC Lidocaine HCl (Xylocaine-Mpf 1% 2ml Vial) 2 ml PRN 1X PRN ID PRIOR TO IV START ; Start 01/22/18 at 14:00; Stop 01/22/18 at 15:56; Status DC Hydromorphone HCl (Dilaudid) 0.5 mg PRN Q10MIN PRN IV SEV PAIN, Second choice; Start 01/22/18 at 14:00; Stop 01/22/18 at 15:56; Status DC Prochlorperazine Edisylate (Compazine) 5 mg PACU PRN PRN IV NAUSEA, MRX1; Start 01/22/18 at 14:00; Stop 01/22/18 at 15:56; Status DC Ondansetron HCl (Zofran) 4 mg PRN Q6HRS PRN IV NAUSEA/VOMITING; Start at 14:00; Stop 01/23/18 at 13:59; Status UNV Fentanyl Citrate (Fentanyl 2ml Vial) 25 mcg PRN Q5MIN PRN IV MILD PAIN; Start 01/22/18 at 14:00; Stop 01/23/18 at 13:59; Status UNV Fentanyl Citrate (Fentanyl 2ml Vial) 50 mcg PRN Q5MIN PRN IV MODERATE TO SEVERE PAIN; Start 01/22/18 at 14:00; Stop 01/23/18 at 13:59; Status UNV Morphine Sulfate (Morphine Sulfate) 1 mg PRN Q10MIN PRN IV SEVERE PAIN; Start 01/22/18 at 14:00; Stop 01/23/18 at 13:59; Status UNV Ringer's Solution 1,000 ml @ 30 mls/hr Q24H IV ; Start 01/22/18 at 13:50; Stop 01/23/18 at 01:49; Status UNV Lidocaine HCl (Xylocaine-Mpf 1% 2ml Vial) 2 ml PRN 1X PRN ID PRIOR TO IV START ; Start 01/22/18 at 14:00; Stop 01/23/18 at 13:59; Status UNV Hydromorphone HCl (Dilaudid) 0.5 mg PRN Q10MIN PRN IV SEV PAIN, Second choice; Start 01/22/18 at 14:00; Stop 01/23/18 at 13:59; Status UNV Prochlorperazine Edisylate (Compazine) 5 mg PACU PRN PRN IV NAUSEA, MRX1; Start 01/22/18 at 14:00; Stop 01/23/18 at 13:59; Status UNV Fentanyl Citrate (Fentanyl 2ml Vial) 100 mcg 1X ONCE IV Last administered on 01/22/18at 13:59; Start 01/22/18 at 14:00; Stop 01/22/18 at 14:01; Status DC Ketorolac Tromethamine (Toradol 30mg Vial) 30 mg 1X ONCE IV Last administered on 01/22/18at 13:58; Start 01/22/18 at 14:00; Stop 01/22/18 at 14:01; Status DC Fentanyl Citrate (Fentanyl 2ml Vial) 50 mcg 1X ONCE IV ; Start 01/22/18 at 14: 00; Stop 01/22/18 at 14:01; Status DC Midazolam HCl (Versed) 3 mg 1X ONCE IV ; Start 01/22/18 at 14:00; Stop at 14:01; Status DC Dexamethasone Sodium Phosphate (Decadron) 20 mg STK-MED ONCE .ROUTE ; Start at 14:23; Stop 01/22/18 at 14:24; Status DC Ondansetron HCl (Zofran) 4 mg STK-MED ONCE .ROUTE ; Start 01/22/18 at 14:23; Stop 01/22/18 at 14:24; Status DC Sevoflurane (Ultane) 15 ml STK-MED ONCE IH ; Start 01/22/18 at 14:23; Stop at 14:24; Status DC Oxycodone/ Acetaminophen (Percocet 10/325) 1 tab 1X ONCE PO ; Start 01/22/18 at 15:15; Stop 01/22/18 at 15:16; Status DC Active Scripts Active Reported Percocet 10-325 Mg Tablet (Oxycodone/Acetaminophen) 1 Each Tablet 1 Tab PO Q3- 4HRS PRN Vital Signs Vital Signs Date Time Temp Pulse Resp B/P (MAP) Pulse Ox O2 Delivery O2 Flow Rate FiO2 01/22/18 16:34 97.8 64 16 138/78 96 Room Air 97.8 01/22/18 14:45 10 Allergies Allergies Coded Allergies Type Severity Reaction Last Updated Verified No Known Drug Allergies 12/13/14 No Disposition/Orders: D/C to Home MAYTE BHAT MD Jan 22, 2018 22:41
== END 2018-01-22 13:54 | disposition short-term general hospital (02) ==
LOC: ER 10:48 → SURHOP 13:53 → ER 13:54
DX: S43.004A Unspecified dislocation of right shoulder joint, initial encounter (principal); I10 Essential (primary) hypertension; X58.XXXA Exposure to other specified factors, initial encounter; Y93.89 Activity, other specified; Y92.89 Other specified places as the place of occurrence of the external cause; Y99.8 Other external cause status
CPT/HCPCS: 23655; 73030; 76000; 99285; J1100; J1885; J2001; J2405; J2704; J3010; J7120

== ENCOUNTER 2019-03-24 20:11 | Emergency (ER) | payer SELFPAY ==
[~2019-03-24] VITALS: Ht 172.7 cm; Wt 86.2 kg
[~2019-03-24 20:11] MED LIST changes: +HYDR-3164 PO; -HYDR-971 PO; +OXYC1TAB22 PO
[2019-03-24 20:56] LABS: INFLUENZA A PATIENT NEGATIVE (NEGATIVE); INFLUENZA B PATIENT NEGATIVE (NEGATIVE)
[2019-03-24 21:10] VITALS: BP 157/68
[2019-03-24] MEDS ORDERED: BENZ100C PO (22:17)
[2019-03-24] MEDS ORDERED: AZIT250T6 PO (22:17)
--- NOTE | 2019-03-24 22:18 | PHYS DOC ---
Past Medical History Past Medical History: Hypertension Past Surgical History: No Surgical History Alcohol Use: None Drug Use: None Adult General Chief Complaint Chief Complaint: COUGH HPI HPI Patient is a 48 year old [f__sex] who presents with [] Review of Systems Review of Systems Constitutional: Denies fever or chills [] Eyes: Denies change in visual acuity, redness, or eye pain [] HENT: Denies nasal congestion or sore throat [] Respiratory: Denies cough or shortness of breath [] Cardiovascular: No additional information not addressed in HPI [] GI: Denies abdominal pain, nausea, vomiting, bloody stools or diarrhea [] : Denies dysuria or hematuria [] Musculoskeletal: Denies back pain or joint pain [] Integument: Denies rash or skin lesions [] Neurologic: Denies headache, focal weakness or sensory changes [] Endocrine: Denies polyuria or polydipsia [] All other systems were reviewed and found to be within normal limits, except as documented in this note. Allergies Allergies Allergies Coded Allergies Type Severity Reaction Last Updated Verified No Known Drug Allergies 12/13/14 No Physical Exam Physical Exam Constitutional: Well developed, well nourished, no acute distress, non-toxic appearance. [] HENT: Normocephalic, atraumatic, bilateral external ears normal, oropharynx moist, no oral exudates, nose normal. [] Eyes: PERRLA, EOMI, conjunctiva normal, no discharge. [] Neck: Normal range of motion, no tenderness, supple, no stridor. [] Cardiovascular:Heart rate regular rhythm, no murmur [] Lungs & Thorax: Bilateral breath sounds clear to auscultation [] Abdomen: Bowel sounds normal, soft, no tenderness, no masses, no pulsatile masses. [] Skin: Warm, dry, no erythema, no rash. [] Back: No tenderness, no CVA tenderness. [] Extremities: No tenderness, no cyanosis, no clubbing, ROM intact, no edema. [] Neurologic: Alert and oriented X 3, normal motor function, normal sensory function, no focal deficits noted. [] Psychologic: Affect normal, judgement normal, mood normal. [] Current Patient Data Vital Signs Vital Signs Date Time Temp Pulse Resp B/P (MAP) Pulse Ox O2 Delivery O2 Flow Rate FiO2 12/30/19 21:10 98 18 157/68 (97) 97 Room Air 03/24/19 20:15 97.5 97.5 Lab Values Laboratory Tests Test 03/24/19 20:20 Influenza Type A Antigen Negative (NEGATIVE) Influenza Type B Antigen Negative (NEGATIVE) EKG EKG [] Radiology/Procedures Radiology/Procedures [] Course & Med Decision Making Course & Med Decision Making Pertinent Labs and Imaging studies reviewed. (See chart for details) [] Dragon Disclaimer Dragon Disclaimer This electronic medical record was generated, in whole or in part, using a voice recognition dictation system. Departure Departure Impression: Primary Impression: Cough Additional Impression: Pneumonia Disposition: HOME, SELF-CARE Condition: STABLE Referrals: NO PCP (PCP) Patient Instructions: Pneumonia, Adult, [id number] Additional Instructions: Fill prescription(s) and use as directed. Recommend use of a Cool mist humidifier in room at bedtime. Alternate Tylenol or ibuprofen as needed for pain/fever. Increase clear fluids. Avoid airway triggers such as smoke, fragrance, dust, and pollen. Follow-up with your primary care doctor if symptoms persist, return to the ER if symptoms worsen. Scripts Benzonatate (TESSALON PERLE) 100 Mg Capsule 1 CAP PO TID PRN for COUGH for 7 Days, #21 CAP 0 Refills Prov: ARTHUR FLORES APRN 03/24/19 Azithromycin (AZITHROMYCIN TABLET) 250 Mg Tablet 1 PKG PO UD for 5 Days, #6 TAB 0 Refills 2 the first day followed by 1 for days 2-5 Prov: ARTHUR FLORES APRN 03/24/19 Problem Qualifiers Additional Impression: Pneumonia Pneumonia type: due to unspecified organism Laterality: left Lung location: lower lobe of lung Qualified Codes: J18.9 - Pneumonia, unspecified organism ARTHUR FLORES [employer]ICAL [employer]IXER Mar 24, 2019 22:17
--- NOTE | 2019-03-24 23:53 | RAD ---
CHEST PA LATERAL Technique: PA and lateral views of the chest were obtained. Clinical History: 1 month cough Comparison: None. Findings: The heart and pulmonary vasculature appear within normal limits. There is linear opacities in the left lower lobe. The pleural margins are clear. Impression: Left lower lobe infiltrate likely pneumonia. Electronically signed by: Jamshid Talley III, MD (03/24/2019 11:50 PM) [facility]
== END 2019-03-24 22:20 | disposition home or self-care (01) ==
LOC: ER 20:11
DX: J18.9 Pneumonia, unspecified organism (principal); R05 Cough; R09.89 Other specified symptoms and signs involving the circulatory and respiratory systems; I10 Essential (primary) hypertension
CPT/HCPCS: 71046; 87804; 99285